=== PATIENT | female | born 1960 | race Two or more races ===

== ENCOUNTER 2019-12-29 10:50 | Day surgery (SDC) | payer OTHER ==
[2019-12-29] MEDS ORDERED: PERCOCET 5-3251 EACH PO (16:18)
[2019-12-29] MEDS ORDERED: DUI500 PO (16:18)
[2019-12-29] MEDS ORDERED: ALEVE220 M1 PO (16:18)
== END 2019-12-29 18:40 | disposition home or self-care (01) ==
LOC: CIR.AMB 10:50
DX: S52.532A Colles' fracture of left radius, initial encounter for closed fracture (principal)
CPT/HCPCS: 25609; C1776; 20902